=== PATIENT | female | born 1995 | race Caucasian/White ===

== ENCOUNTER 2021-05-10 14:04 | Outpatient (REF) | payer OTHER, SELFPAY ==
[2021-05-10 16:24] LABS: Influenza A PCR NEGATIVE (Negative); Influenza B PCR NEGATIVE (Negative); Resp Syncy Virus RNA Qual PCR NEGATIVE (Negative); SARS COV2 PCR INHOUSE NEGATIVE (Negative)
== END 2021-05-10 14:05 | disposition home or self-care (01) ==
LOC: HO.LNP 14:04
PROVIDERS: Visit Provider Family Medicine
DX: Z20.822 Contact with and (suspected) exposure to COVID-19 (principal); B34.9 Viral infection, unspecified
CPT/HCPCS: 0241U

== ENCOUNTER 2021-08-08 09:01 | Outpatient (REF) | payer OTHER, SELFPAY ==
[2021-08-08 11:06] LABS: MANUAL DIFF FLAG NO
[2021-08-08 11:07] LABS: Basophils Percent Auto 0.6 % (0-2); Eosinophils Absolute Auto 0.1 X10*3/uL (0.0-0.4); Eosinophils Percent Auto 1.6 % (0-4); Hematocrit 42.2 % (37.0-47.0); Hemoglobin 14.4 g/dl (12.0-16.0); Imm Gran Abs Auto 0.02 X10*3/uL (0.00-0.03); Imm Gran Pct Auto 0.3 % (0.0-0.4); Lymphocytes Absolute Auto 1.8 X10*3/uL (1.2-4.9); Lymphocytes Percent Auto 28.5 % (20-40); Mean Corpuscular HGB Conc 34.1 g/dl (31.0-35.0); Mean Corpuscular Hemoglobin 30.6 pg (27.0-33.0); Mean Corpuscular Volume 89.6 fL (80.0-98.0); Mean Platelet Volume 10.8 fL (9.4-12.3); Monocytes Absolute Auto 0.4 X10*3/uL (0.1-1.2); Monocytes Percent Auto 5.6 % (2-11); Neutrophils Absolute Auto 4.1 x10*3/uL (2.0-8.3); Neutrophils Percent Auto 63.4 % (45-73); Platelet Count 215 X10*3/uL (160-400); Red Blood Count 4.71 X10*6/uL (4.20-5.50); White Blood Count 6.5 X10*3/uL (4.8-10.8)
[2021-08-08 11:50] LABS: Alanine Aminotransferase 20 U/L (0-31); Albumin Level 4.6 g/dL (3.5-5.0); Alkaline Phosphatase 58 U/L (39-117); Anion Gap 10 (12-20); Aspartate Amino Transferase 17 U/L (5-31); Bilirubin Total 1.1 mg/dL (0.0-1.0); Blood Urea Nitrogen 9 mg/dL (9-16); Calcium 9.2 mg/dL (8.4-10.2); Carbon Dioxide 26 mmol/L (22-29); Chloride 107 mmol/L (96-108); Cholesterol 259 mg/dL; Estimated Glomerular Filt Rate > 60; Glucose Fasting 86 mg/dL (60-99); HDL Cholesterol 53 mg/dL; Iron 165 mcg/dL (30-160); LDL Cholesterol Calculated 191 mg/dl; Percent Iron Saturation 63 % (15-50); Potassium 4.2 mmol/L (3.3-5.1); Sodium 139 mmol/L (135-145); Total Iron Binding Capacity 263 mcg/dL (228-428); Total Protein 7.7 g/dL (6.5-8.0); Triglycerides 75 mg/dL; Unsaturated Iron Binding 98 ug/dL
[2021-08-08 11:56] LABS: HBS Num1 121.46 mIU/mL (0-7.99); HBc Num1 0.12 S/CO (0.00-0.79); HBsAGNum1 0.22 S/CO (0.00-0.99); Hepatitis B Core Antibody Nonreactive (Nonreactive); Hepatitis B Surface Antigen Negative (Negative); TSH reflex Free T4 1.04 uIU/mL (0.32-4.0); ~Hepatitis B Surface Antibody REACTIVE (Nonreactive)
[2021-08-08 11:58] LABS: HIV AB/AG Nonreactive (Nonreactive); ~Hepatitis C Antibody Nonreactive (Nonreactive)
[2021-08-08 12:03] LABS: HIV Num 1 0.07 S/CO (0.00-0.99); ~HepC Num1 0.14 S/CO (0.00-0.79)
[2021-08-08 12:15] LABS: Folate 18.7 ng/mL (> or = 4.0); Vitamin B12 461 pg/mL (200-900)
[2021-08-09 08:37] LABS: Syphilis Screen Nonreactive (Nonreactive)
[2021-08-09 09:02] LABS: Follicle Stimulating Hormone 10.6 mIU/mL; Lutenizing Hormone 26.8 mIU/mL
== END 2021-08-08 09:02 | disposition home or self-care (01) ==
LOC: HO.HMGCLDS 09:01
PROVIDERS: PCP Family Medicine; Visit Provider Family Medicine
DX: Z00.00 Encounter for general adult medical examination without abnormal findings (principal); Z11.4 Encounter for screening for human immunodeficiency virus [HIV]; Z11.3 Encounter for screening for infections with a predominantly sexual mode of transmission; R53.83 Other fatigue; E53.8 Deficiency of other specified B group vitamins; L70.9 Acne, unspecified
CPT/HCPCS: 36415; 80053; 80061; 82607; 82746; 83001; 83002; 83540; 84443; 85025; 86704; 86706; 86780; 86803; 87340; 87389

== ENCOUNTER 2021-08-12 19:35 | Outpatient (REF) | payer OTHER, SELFPAY | END 2021-08-12 19:36 | disposition home or self-care (01) | LOC: HO.LNP 19:35 | PROVIDERS: Visit Provider Family Medicine | DX: R09.89 Other specified symptoms and signs involving the circulatory and respiratory systems (principal); E78.00 Pure hypercholesterolemia, unspecified; E55.9 Vitamin D deficiency, unspecified; Z20.822 Contact with and (suspected) exposure to COVID-19 | CPT/HCPCS: U0003; U0005 ==

== ENCOUNTER 2021-10-09 12:31 | Outpatient (REF) | payer OTHER, SELFPAY ==
[2021-10-09 14:03] LABS: MANUAL DIFF FLAG NO
[2021-10-09 14:06] LABS: Basophils Percent Auto 0.3 % (0-2); Eosinophils Percent Auto 0.4 % (0-4); Hematocrit 42.5 % (37.0-47.0); Hemoglobin 14.9 g/dl (12.0-16.0); Imm Gran Abs Auto 0.02 X10*3/uL (0.00-0.03); Imm Gran Pct Auto 0.3 % (0.0-0.4); Lymphocytes Absolute Auto 0.9 X10*3/uL (1.2-4.9); Lymphocytes Percent Auto 12.9 % (20-40); Mean Corpuscular HGB Conc 35.1 g/dl (31.0-35.0); Mean Corpuscular Hemoglobin 30.8 pg (27.0-33.0); Mean Platelet Volume 10.8 fL (9.4-12.3); Monocytes Absolute Auto 0.6 X10*3/uL (0.1-1.2); Neutrophils Absolute Auto 5.4 x10*3/uL (2.0-8.3); Neutrophils Percent Auto 77.1 % (45-73); Platelet Count 182 X10*3/uL (160-400); Red Blood Count 4.83 X10*6/uL (4.20-5.50); Red Cell Distribution Width 12.2 % (11.0-16.0)
[2021-10-09 14:30] LABS: Alanine Aminotransferase 12 U/L (0-31); Alkaline Phosphatase 51 U/L (39-117); Anion Gap 11 (12-20); Aspartate Amino Transferase 15 U/L (5-31); Bilirubin Total 0.6 mg/dL (0.0-1.0); Blood Urea Nitrogen 7 mg/dL (9-16); Calcium 8.8 mg/dL (8.4-10.2); Carbon Dioxide 30 mmol/L (22-29); Chloride 101 mmol/L (96-108); Cholesterol 166 mg/dL; Estimated Glomerular Filt Rate > 60; Glucose Fasting 88 mg/dL (60-99); HDL Cholesterol 23 mg/dL; LDL Cholesterol Calculated 115 mg/dl; Potassium 3.5 mmol/L (3.3-5.1); Sodium 138 mmol/L (135-145); Total Protein 6.6 g/dL (6.5-8.0); Triglycerides 144 mg/dL
[2021-10-09 14:44] LABS: Vitamin D 25-OH Total 25.1 ng/mL (>30)
[2021-10-09 17:49] LABS: Influenza A PCR NEGATIVE (Negative); Influenza B PCR NEGATIVE (Negative); Resp Syncy Virus RNA Qual PCR NEGATIVE (Negative); SARS COV2 PCR INHOUSE NEGATIVE (Negative)
== END 2021-10-09 12:32 | disposition home or self-care (01) ==
LOC: HO.WFDLDS 12:31
PROVIDERS: Visit Provider Family Medicine
DX: Z00.00 Encounter for general adult medical examination without abnormal findings (principal); Z20.822 Contact with and (suspected) exposure to COVID-19; E55.9 Vitamin D deficiency, unspecified; R68.89 Other general symptoms and signs; E78.00 Pure hypercholesterolemia, unspecified
CPT/HCPCS: 0241U; 36415; 80053; 80061; 82306; 85025

== ENCOUNTER 2023-03-30 14:19 | Outpatient (AMB) | payer OTHER, SELFPAY ==
--- NOTE | 2023-03-30 15:15 | MHC.OFFWIV ---
Intake Vital Signs 03/30/23 15:26 Height 5 ft 3 in Weight 117 lb BMI 20.7 BP 118/78 Blood Pressure Location Rt brachial Position Sitting Pulse 104 H Pulse Source Pulse Oximeter Temp 97.9 F Temp Source Temporal Artery Scan Pulse Oximetry (%) 99 Oxygen Delivery Method Room Air Intake Visit Reasons: EP ?Skin burn from light therapy Intake Note: Patient here for burn on chin area. pt states she used her boyfriends light therapy for acne and used it for longer then what instructions suggested as she did not fully read them and did not have any redness that same day but the next day she woke up with it very red and painful and now it is blistering and still very red and painful. Patient Tobacco Use Status: Never used Tobacco Allergies No Known Allergies Allergy (Verified 03/30/23 15:59) Medication List - Last Reconciled 03/30/23 by Yifan Piña MD cholecalciferol (vitamin D3) 50 mcg PO DAILY 90 days dextroamphetamine-amphetamine 15 mg ER (Adderall XR) 1 cap PO QAM minocycline 100 mg PO BID ondansetron 4 mg PO Q6H PRN 5 days Do you need a note to return to daycare/school/sports/work: No HPI EP ?Skin burn from light therapy HPI Details 27-year-old female presents to the office for a sick visit. Patient was using a UV light at home. She has now developed a rash on the chin and left side of the cheek. [facility] Medical History ADHD Anxiety Hallux valgus, bilateral History of asthma Vitamin D deficiency Surgical History No pertinent past surgical history Family History Father No problems noted. Mother No problems noted. Maternal Grandmother No problems noted. Maternal Grandfather No problems noted. Paternal Grandfather CVD (cardiovascular disease) Paternal Grandmother Alcohol abuse Sister No problems noted. Daughter No problems noted. Social History Alcohol intake: never Patient Tobacco Use Status: Never used Tobacco e-Cigarette/Vaping Use: Never Used Second Hand Smoke Exposure: No service: No Current occupational status: employed Current occupational exposures/hazards: No Cognitive needs: No Hearing needs: No Vision needs: No Physical Exam Vital Signs: Last Vital Signs Temp 97.9 F 03/30/23 15:26 Pulse 104 H 03/30/23 15:26 BP 118/78 03/30/23 15:26 Pulse Ox 99 03/30/23 15:26 Oxygen Delivery Method Room Air 03/30/23 15:26 BMI result Body Mass Index 20.7 Skin Other: Erythematous, vesicular rash on the chin and on the left side. 5 cm lesion. Assessment & Plan Assessment & Plan (1) Rash: Code(s): R21 - Rash and other nonspecific skin eruption Plan: More like a superficial burn with blister. Prednisone to reduce the swelling and Silvadene ointment to apply over the rash prescribed. If symptoms do not improve to follow-up here. Coding Level of Care Code Est Pt Level 4 (50211) Diagnoses Rash R21
[2023-03-30 15:26] VITALS: BP 118/78; PULSE 104; TEMP 36.6; O2SAT 99; BMI 20.7
== END 2023-03-30 16:12 | disposition home or self-care (01) ==
PROVIDERS: PCP Family Medicine; Visit Provider Internal Medicine
DX: R21 Rash and other nonspecific skin eruption (principal)
CPT/HCPCS: 99214

== ENCOUNTER 2023-04-22 12:08 | Outpatient (REF) | payer OTHER, SELFPAY ==
[2023-04-24 22:13] LABS: TS Negative Control Passed; TS Panel A 0; TS Panel B 0; TS Positive Control Passed; TSpotTB Negative (Negative)
== END 2023-04-22 12:09 | disposition home or self-care (01) ==
LOC: HO.HMGCLDS 12:08
PROVIDERS: PCP Family Medicine; Visit Provider Family Medicine
DX: Z11.1 Encounter for screening for respiratory tuberculosis (principal)
CPT/HCPCS: 36415; 86481